=== PATIENT | female | born 1980 | race Caucasian/White ===

== ENCOUNTER 2019-04-16 12:15 | Emergency (ER) | payer SELFPAY ==
[2019-04-16] MEDS ORDERED: ASPIRIN 81 MG TABLET, CHEWABLE PO ONE (12:52)
--- NOTE | 2019-04-16 12:53 | ER Document Report ---
ED Medical Screen (RME) - General Chief Complaint: Chest Pain > 30 Stated Complaint: CHEST/BACK PAIN Time Seen by Provider: 04/16/19 12:50 TRAVEL OUTSIDE OF THE [place] IN LAST 30 DAYS: No - HPI Notes: 04/16/19 12:52 Patient is a 38-year-old female with no significant past medical history aside from tobacco abuse who presents complaining of right sternal chest pain that began 11 hours ago, but has eased off per patient. She is not aware of anything that worsens or improves her symptoms. Denies any recent surgery/trauma, personal cancer history, hormone use, or previous DVT/PE. Denies COOK, fever, nec k pain, URI, n/v/d, Abd pain, dysuria, or rash. I have treated and performed a rapid initial assessment of this patient. A comprehensive ED assessment and evaluation of the patient, analysis of test results and completion of medical decision making process will be conducted by additional ED providers. PHYSICAL EXAMINATION: GENERAL: Well-appearing, well-nourished and in no acute distress. A&Ox4. Answers questions appropriately. LUNGS: Breath sounds clear to auscultation bilaterally and equal. No wheezes rales or rhonchi. HEART: Regular rate and rhythm without murmurs, rubs, gallops. Extremities: No cyanosis, clubbing, or edema b/l. Eleuterio negative bilaterally. No lower extremity asymmetry. NEUROLOGICAL: Normal speech, normal gait. PSYCH: Normal mood, normal affect. - Related Data Allergies/Adverse Reactions: No Known Allergies Allergy (Verified 04/16/19 12:52) Past Medical History - Social History Chew tobacco use (# tins/day): No Frequency of alcohol use: None Drug Abuse: None Physical Exam - Vital signs Vitals: Temp Pulse Resp BP Pulse Ox 97.7 F 81 16 112/77 100 04/16/19 12:30 04/16/19 12:30 04/16/19 12:30 04/16/19 12:30 04/16/19 12:30 Course - Vital Signs Vital signs: Temp Pulse Resp BP Pulse Ox 97.7 F 81 16 112/77 100 04/16/19 12:30 04/16/19 12:30 04/16/19 12:30 04/16/19 12:30 04/16/19 12:30
--- NOTE | 2019-04-16 13:28 | RADIOLOGY REPORT (SQ) ---
EXAM DESCRIPTION: CHEST 2 VIEWS COMPLETED DATE/TIME: 04/16/2019 1:20 pm REASON FOR STUDY: CP COMPARISON: None. EXAM PARAMETERS: NUMBER OF VIEWS: two views TECHNIQUE: Digital Frontal and Lateral radiographic views of the chest acquired. RADIATION DOSE: NA LIMITATIONS: none FINDINGS: LUNGS AND PLEURA: No opacities, masses or pneumothorax. No pleural effusion. MEDIASTINUM AND HILAR STRUCTURES: No masses or contour abnormalities. HEART AND VASCULAR STRUCTURES: Heart normal size. No evidence for failure. BONES: No acute findings. HARDWARE: None in the chest. OTHER: No other significant finding. IMPRESSION: NO ACUTE RADIOGRAPHIC FINDING IN THE CHEST. TECHNICAL DOCUMENTATION: JOB ID: [id number] [employer]- All Rights Reserved Reading location - IP/workstation name: [email or web address]
[2019-04-16 14:15] LABS: ABSOLUTE BASOPHILS # (AUTO) 0.1 10^3/uL (0.0-0.2); ABSOLUTE EOSINOPHILS # (AUTO) 0.1 10^3/uL (0.0-0.6); ABSOLUTE LYMPHOCYTES (AUTO) 1.7 10^3/uL (0.5-4.7); ABSOLUTE MONOCYTES (AUTO) 0.7 10^3/uL (0.1-1.4); ABSOLUTE NEUT (AUTO) 6.6 10^3/uL (1.7-8.2); BASOPHILS % (AUTO) 0.6 % (0-2); EOSINOPHILS % (AUTO) 1.5 % (0-6); HEMOGLOBIN 12.5 g/dL (12.0-15.5); LYMPHOCYTES % (AUTO) 18.3 % (13-45); MEAN CORPUSCULAR HEMOGLOBIN 34.5 pg (27.0-33.4); MEAN CORPUSCULAR HGB CONC 34.6 g/dL (32.0-36.0); MEAN CORPUSCULAR VOLUME 100 fl (80-97); MONOCYTES % (AUTO) 7.5 % (3-13); PLATELET COUNT 269 10^3/uL (150-450); RED BLOOD COUNT 3.62 10^6/uL (3.72-5.28); RED CELL DISTRIBUTION WIDTH 15.7 % (11.5-14.0); SEGMENTED NEUTROPHILS % (AUTO) 72.1 % (42-78); TOTAL CELLS COUNTED % (AUTO) 100 %; WHITE BLOOD COUNT 9.2 10^3/uL (4.0-10.5)
[2019-04-16 14:37] LABS: ALBUMIN 3.9 g/dL (3.5-5.0); ALKALINE PHOSPHATASE 79 U/L (38-126); ANION GAP 10 (5-19); ASPARTATE AMINO TRANSFERASE 91 U/L (14-36); BILIRUBIN,DIRECT 0.2 mg/dL (0.0-0.4); BILIRUBIN,TOTAL 0.3 mg/dL (0.2-1.3); BLOOD UREA NITROGEN 8 mg/dL (7-20); CALCIUM 9.8 mg/dL (8.4-10.2); CARBON DIOXIDE 26 mmol/L (22-30); CHLORIDE 101 mmol/L (98-107); GLUCOSE 89 mg/dL (75-110); POTASSIUM 4.4 mmol/L (3.6-5.0); TOTAL PROTEIN 6.6 g/dL (6.3-8.2)
--- NOTE | 2019-04-16 14:42 | ER Document Report ---
ED General - General Chief Complaint: Chest Pain > 30 Stated Complaint: CHEST/BACK PAIN Time Seen by Provider: 04/16/19 12:50 Notes: 38-year-old female presents emergency department complaining of a sudden onset of a sharp stabbing pain in her chest that radiates to her back and her bilateral shoulders and down to her low back that started 230 this morning. It went on until about 615 this morning when it slowly started to decrease until 10 15 this morning. Patient states that it was a crippling pain that prevents her from standing up straight. Now that it is improving it does not worsen with any movement. Patient had prior similar episode 6 months ago that resolved within 45 minutes so she did not have it investigated. Denies any trauma or shortness of breath associated with this. Does admit a recent [address] TRAVEL OUTSIDE OF THE [place] IN LAST 30 DAYS: No - Related Data Allergies/Adverse Reactions: No Known Allergies Allergy (Verified 04/16/19 12:52) Past Medical History - General Information source: Patient - Social History Smoking Status: Current Every Day Smoker Chew tobacco use (# tins/day): No Frequency of alcohol use: Occasional Drug Abuse: None Family History: CAD - mom with [place] in early 40s Patient has suicidal ideation: No Patient has homicidal ideation: No Review of Systems - Review of Systems Constitutional: No symptoms reported Cardiovascular: See HPI Respiratory: No symptoms reported Gastrointestinal: No symptoms reported Musculoskeletal: See HPI, Back pain -: Yes All other systems reviewed and negative Physical Exam - Vital signs Vitals: Temp Pulse Resp BP Pulse Ox 97.7 F 81 16 112/77 100 04/16/19 12:30 04/16/19 12:30 04/16/19 12:30 04/16/19 12:30 04/16/19 12:30 Interpretation: Normal - Notes Notes: GENERAL: Alert, interacts well. No acute distress. HEAD: Normocephalic, atraumatic EYES: Pupils equal, round and reactive to light, extraocular movements intact. ENT: Oral mucosa moist, tongue midline. NECK: Full range of motion, supple, trachea midline. LUNGS: Clear to auscultation bilaterally, no wheezes, rales or rhonchi, no respiratory distress. HEART: Regular rate and rhythm, no murmurs, gallops, rubs. ABDOMEN: Soft, minimal epigastric tenderness to palpation nondistended, bowel sounds present in all 4 quadrants. BACK: No step-offs no deformities, no midline bony tenderness to palpation. Mild paraspinal tenderness to palpation in the lumbar spine. EXTREMITIES: Moves all 4 extremities spontaneously, no edema, radial and dorsalis pedis pulses 2/4 bilaterally. No cyanosis. 5 out of 5 muscle strength in all 4 extremities. NEUROLOGICAL: Alert and oriented x3, normal speech, biceps and patellar DTRs 2+ bilaterally. PSYCH: Normal mood, normal affect. SKIN: Warm, Dry, normal turgor, no rashes or lesions noted. Course - Re-evaluation Re-evalutation: 04/16/19 16:29 CBC unremarkable, CMP grossly unremarkable, there is slightly elevated AST at 91, patient admits to drinking several beers last night. This should be rechecked as an outpatient. Cardiac enzymes negative, lipase normal, test negative, chest x-ray shows no acute process, CT angiogram of the chest was performed given the fact that she did have a sharp stabbing pain in her chest radiating to her back and down. This was also negative. Some of her pain is reproducible on palpation of the muscles in her back. At present patient will be prescribed muscle relaxers for this pain and discharged home. Recommend further outpatient follow-up should pain persist. Patient did ask to be checked for "all of the diseases including HIV." Discussed with patient that the health department can do outpatient testing for gonorrhea, chlamydia, HIV and syphilis if she desires this. No current symptoms indicating need for emergent work-up today. - Vital Signs Vital signs: Temp Pulse Resp BP Pulse Ox 97.7 F 81 16 112/77 100 04/16/19 12:30 04/16/19 12:30 04/16/19 12:30 04/16/19 12:30 04/16/19 12:30 - Laboratory Result Diagrams: 04/16/19 14:00 04/16/19 14:00 Laboratory results interpreted by me: 04/16/19 04/16/19 14:00 14:00 RBC 3.62 L MCV 100 H MCH 34.5 H RDW 15.7 H Sodium 136.5 L AST 91 H - EKG Interpretation by Me Additional EKG results interpreted by me: 04/16/19 16:30 EKG shows sinus rhythm at a rate of 88, short NV interval, normal axis, no ST segment elevations or depressions, no T wave inversions per my interpretation. Discharge - Discharge Clinical Impression: Chest pain of uncertain etiology, Lumbar paraspinal muscle spasm Condition: Stable Disposition: HOME, SELF-CARE Additional Instructions: I prescribed a muscle relaxer to try and help with some of your pain. Please take it as directed and do not mix it with other muscle relaxant or sedating medications. Please use ibuprofen (Motrin or Advil) 600-800 mg every 8 hours as needed for pain or fever. You may also use acetaminophen (Tylenol) 1000 mg every 4-6 hours as needed for pain or fever. Please be aware that many medications contain acetaminophen, do not exceed a total of 1000 mg of acetaminophen every 6 hours. The [facility] department provides free screening for sexually transmitted diseases. If you would like to be checked for sexually transmitted diseases you may go there during the week. You may check their website for further information or use the phone book to find their number and call them for further information. Please return to the emergency department should you lose the ability to move your arm, your arm goes completely numb, you have difficulty breathing or any new or concerning symptoms. Prescriptions: Methocarbamol [Robaxin 750 mg Tablet] 1 - 2 tab PO Q8HP PRN #40 tablet PRN Reason: For Back Pain Referrals: [facility]ALTH DEPT,[facility] [NO LOCAL MD] - Follow up as needed
--- NOTE | 2019-04-16 15:49 | RADIOLOGY REPORT (SQ) ---
EXAM DESCRIPTION: CTA CHEST COMPLETED DATE/TIME: 04/16/2019 3:22 pm REASON FOR STUDY: sharp stabbing pain through to the back COMPARISON: Two-view chest 04/16/2019 TECHNIQUE: CT scan of the chest performed using helical scanning technique with dynamic intravenous contrast injection. Images reviewed with lung, soft tissue and bone windows. Reconstructed coronal and sagittal MPR images reviewed. Additional 3 dimensional post-processing performed to develop Maximal Intensity Projection images (PA P). All images stored on PACS. All CT scanners at this facility use dose modulation, iterative reconstruction, and/or weight based d osing when appropriate to reduce radiation dose to as low as reasonably achievable (ALARA). [facility]: Dose Right [facility]: CareDose [facility]: Dose Right [facility]: Teradose 4D [facility]: Dashbook CONTRAST TYPE AND DOSE: contrast/concentration: Isovue 350.00 mg/ml; Total Contrast Delivered: 64.0 ml; Total Saline Delivered: 90.0 ml Contrast bolus optimized for the pulmonary arteries and thoracic aorta. RENAL FUNCTION: Creatinine 0.54 RADIATION DOSE: CT Rad equipment meets quality standard of care and radiation dose reduction techniq ues were employed. CTDIvol: 3.3 - 14.3 mGy. DLP: 1106 mGy-cm. . LIMITATIONS: None. FINDINGS: LUNGS AND PLEURA: No masses, infiltrates, or pneumothorax. No pleural effusions or pleura l calcifications. AORTA AND GREAT VESSELS: No aneurysm or thoracic aortic dissection. HEART: No pericardial effusion. No significant coronary artery calcifications. PULMONARY ARTERIES: No emboli visualized in the main pulmonary arteries or the segmental branches. HILAR AND MEDIASTINAL STRUCTURES: No identified masses or abnormal nodes. Small hiatal hernia. HARDWARE: None in the chest. UPPER ABDOMEN: No significant findings. Limited exam. THYROID AND OTHER SOFT TISSUES: No masses. No adenopathy. BONES: No acute or significant finding. 3D MIPS: Confirm above findings. OTHER: No other significant finding. IMPRESSION: NORMAL CTA OF THE CHEST. NO PULMONARY EMBOLI. COMMENT: Quality ID # [id number]: Final reports with documentation of one or more dose reduction techniques (e.g., Automated exposure control, adjustment of the mA and/or kV according to patient size, use of iterative reconstruction technique) TECHNICAL DOCUMENTATION: JOB ID: [id number] [employer]- All Rights Reserved Reading location - IP/workstation name: [email or web address]
[2019-04-16] MEDS ORDERED: METHOCARBAMOL 750 MG TABLET PO ONE (16:33)
[2019-04-16 17:07] VITALS: BP 114/73
--- NOTE | 2019-04-17 00:27 | EKG REPORT ---
SEVERITY:- BORDERLINE ECG - SINUS RHYTHM SHORT [place] INTERVAL, ACCELERATED AV CONDUCTION : Confirmed by: Deborah Schmidt MD 17-Apr-2019 00:26:38
== END 2019-04-16 17:09 | disposition home or self-care (01) ==
LOC: ER 12:15
DX: R07.9 Chest pain, unspecified (principal); M62.830 Muscle spasm of back; M54.5 Low back pain; F17.200 Nicotine dependence, unspecified, uncomplicated
CPT/HCPCS: 93005; 36415; 83690; 84703; 85025; 80053; 84484; 71046; 71275; 93010; J3490

== ENCOUNTER 2019-04-23 16:05 | Emergency (ER) | payer SELFPAY ==
[2019-04-23 16:41] VITALS: BP 101/70
[2019-04-23] MEDS ORDERED: PREDNISONE 20 MG TABLET PO ONE (17:28)
[2019-04-23] MEDS ORDERED: PREDNISONE 20 MG TABLET ONE (17:34)
--- NOTE | 2019-04-23 17:34 | ER Document Report ---
HPI - HPI Time Seen by Provider: 04/23/19 16:55 Pain Level: 3 Notes: Patient is an otherwise well-appearing 39-year-old female presenting to the emergency department with complaints of back pain. She reports she was seen here last week and was prescribed Flexeril. She reports the Flexeril it has been helping significantly. She reports at that time they did a full work-up on her and found her blood work to be normal. She states that she called EMS today as the pain returned around 1130 this morning. She states EMS gave her a shot of Toradol which significantly helped the pain. She denies taking any [id number] medications at home to include Tylenol or ibuprofen for this pain. She denies any chest pain or shortness of breath. - CONSTITUTIONAL Constitutional: REPORTS: Chills. DENIES: Fever - EENT EENT: DENIES: Sore Throat, Ear Pain, Eye problems - NEURO Neurology: DENIES: Headache, Weakness, Vision blurred, Dizzinesss / Vertigo - CARDIOVASCULAR Cardiovascular: REPORTS: Chest pain - RESPIRATORY Respiratory: DENIES: Trouble Breathing, Coughing - GASTROINTESTINAL Gastrointestinal: REPORTS: Abdominal Pain - URINARY Urinary: DENIES: Dysuria, Urgency, Frequency - REPRODUCTIVE Reproductive: DENIES: : - MUSCULOSKELETAL Musculoskeletal: DENIES: Extremity pain Past Medical History - General Information source: Patient - Social History Smoking Status: Current Every Day Smoker Chew tobacco use (# tins/day): No Frequency of alcohol use: Heavy Drug Abuse: None Family History: CAD - mom with [place] in early 40s Patient has suicidal ideation: No Patient has homicidal ideation: No - Medical History Medical History: Negative Surgical Hx: Negative - Immunizations Immunizations up to date: Yes Vertical Provider Document - CONSTITUTIONAL Notes: PHYSICAL EXAMINATION: GENERAL: Well-appearing, well-nourished and in no acute distress. HEAD: Atraumatic, normocephalic. EYES: Pupils equal round and reactive to light, extraocular movements intact, conjunctiva are normal. ENT: Nares patent, oropharynx clear without exudates. Moist mucous membranes. NECK: Normal range of motion, supple without lymphadenopathy LUNGS: Breath sounds clear to auscultation bilaterally and equal. No wheezes rales or rhonchi. HEART: Regular rate and rhythm without murmurs ABDOMEN: Soft, nontender, nondistended abdomen. No guarding, no rebound. No masses appreciated. Female : deferred Musculoskeletal: Normal range of motion, no pitting or edema. No cyanosis. Tenderness with palpation over thoracic paraspinous muscles bilaterally, no vertebral tenderness, step-off or deformity. NEUROLOGICAL: Cranial nerves grossly intact. Normal speech, normal gait. Normal sensory, motor exams PSYCH: Normal mood, normal affect. SKIN: Warm, Dry, normal turgor, no rashes or lesions noted. - INFECTION CONTROL TRAVEL OUTSIDE OF THE [place] IN LAST 30 DAYS: No Course - Re-evaluation Re-evalutation: Well-appearing but anxious 39-year-old female presenting to the emergency dep artment with back pain. Patient reports Toradol significantly helped her pain and she is requesting a prescription for same. Patient reports multiple stressors going on her life that she is dealing with custody issues any break- up. She believes some of this may be triggered by anxiety. Patient mostly concerned that she needs a work note to excuse her as she has missed the last few days of work. I discussed with patient prescribing Toradol however due to cost restrictions patient would rather just take ibuprofen as I explained her that ibuprofen and Toradol are in a similar drug class. Patient will be discharged home she will continue taking her Flexeril, she states she has plenty of this left. She will take ibuprofen at home. She will have close follow-up with her primary care provider. ED return precautions were discussed, patient verbalizes understanding and agreement with same. - Vital Signs Vital signs: Temp Pulse Resp BP Pulse Ox 97.8 F 77 18 101/70 98 04/23/19 16:38 04/23/19 16:38 04/23/19 16:38 04/23/19 16:38 04/23/19 16:38 Discharge - Discharge Clinical Impression: Musculoskeletal strain Condition: Stable Disposition: HOME, SELF-CARE Additional Instructions: Please continue taking the Flexeril as prescribed. Start taking the prednisone, your first dose was given in the ER. Please take ibuprofen 800 mg every 8 hours this will help with pain and inf lammation. [facility] Return to the emergency department with any new or worsening symptoms. Prescriptions: Prednisone [Deltasone 20 mg Tablet] 3 tab PO DAILY 4 Days #12 tablet Forms: Return to Work
--- NOTE | 2019-04-26 07:32 | EKG REPORT ---
SEVERITY:- BORDERLINE ECG - SINUS TACHYCARDIA CONSIDER ANTERIOR INFARCT BORDERLINE T ABNORMALITIES, ANTERIOR LEADS : Confirmed by: Jack Garcia MD 26-Apr-2019 07:32:06
== END 2019-04-23 17:56 | disposition home or self-care (01) ==
LOC: ER 16:05
DX: S29.012A Strain of muscle and tendon of back wall of thorax, initial encounter (principal); S21.90XA Unspecified open wound of unspecified part of thorax, initial encounter; M54.9 Dorsalgia, unspecified; R07.9 Chest pain, unspecified; X58.XXXA Exposure to other specified factors, initial encounter; Z79.899 Other long term (current) drug therapy; F17.200 Nicotine dependence, unspecified, uncomplicated
CPT/HCPCS: 93005; 99283; 93010; J7512

== ENCOUNTER 2019-04-27 13:04 | Emergency (ER) | payer SELFPAY ==
[2019-04-27] MEDS ORDERED: NORMAL SALINE 1000 ML 1,000 ML IV PRN (13:39)
[2019-04-27] MEDS ORDERED: ONDANSETRON HCL INJ/PF 4 MG/2 ML SDV IV ONE (13:39)
--- NOTE | 2019-04-27 13:40 | ER Document Report ---
ED Medical Screen (RME) - General Chief Complaint: Abdominal Pain Stated Complaint: VOMITING Time Seen by Provider: 04/27/19 13:39 TRAVEL OUTSIDE OF THE [place] IN LAST 30 DAYS: No - HPI Notes: 04/27/19 13:39 Patient is a 39-year-old female with no significant past medical history presents complaining of nausea and vomiting with intermittent abdominal cramping that started last night. No new foods, medicines, or alcohol involvement. She currently does not have any pain. No fever. No recent illness. I have treated and performed a rapid initial assessment of this patient. A comprehensive ED assessment and evaluation of the patient, analysis of test results and completion of medical decision making process will be conducted by additional ED providers. PHYSICAL EXAMINATION: GENERAL: Well-appearing, well-nourished and in no acute distress. A&Ox4. Answers questions appropriately. ABDOMEN: Soft, nondistended abdomen. No guarding, no rebound. Normal bowel sounds present. No CVA tenderness bilaterally. grossly nontender (cannot elicit thorough abd exam w/o bed, however). - Related Data Allergies/Adverse Reactions: No Known Allergies Allergy (Verified 04/27/19 13:37) Past Medical History - Immunizations Immunizations up to date: Yes Physical Exam - Vital signs Vitals: Temp Pulse Resp BP Pulse Ox 97.6 F 72 18 111/72 100 04/27/19 13:13 04/27/19 13:13 04/27/19 13:13 04/27/19 13:13 04/27/19 13:13 Course - Vital Signs Vital signs: Temp Pulse Resp BP Pulse Ox 97.6 F 72 18 111/72 100 04/27/19 13:13 04/27/19 13:13 04/27/19 13:13 04/27/19 13:13 04/27/19 13:13
[2019-04-27] MEDS ORDERED: ONDANSETRON 4 MG TAB.RAPDIS PO ONE (13:44)
[2019-04-27] MEDS ORDERED: PROMETHAZINE HCL INJ 25 MG/1 ML VIAL IM ONE (13:46)
[2019-04-27 15:11] LABS: AMORPHOUS SEDIMENT,URINE 1+ /HPF; APPEARANCE,URINE TURBID; BILIRUBIN,URINE NEGATIVE (NEGATIVE); COLOR,URINE YELLOW; GLUCOSE, URINE NEGATIVE (NEGATIVE); KETONES,URINE 20 mg/dL (NEGATIVE); PROTEIN,URINE 100 mg/dL (NEGATIVE); URINE SPECIFIC GRAVITY 1.019; UROBILINOGEN,URINE NEGATIVE mg/dL (<2.0)
--- NOTE | 2019-04-27 15:44 | ER Document Report ---
ED General - General Chief Complaint: Vomiting Stated Complaint: VOMITING Time Seen by Provider: 04/27/19 13:39 TRAVEL OUTSIDE OF THE [place] IN LAST 30 DAYS: No - HPI Notes: Patient is a 39-year-old female with no significant medical history who presents to the emergency department for evaluation of vomiting. She states that began last night. She relates 18-20 episodes of nonbloody, nonbilious emesis. She states she has had hot and cold chills. No rafaela fevers to her knowledge. She denies any pain. Normal bowel movement yesterday. No urinary symptoms. No cough or shortness of breath. - Related Data Allergies/Adverse Reactions: No Known Allergies Allergy (Verified 04/27/19 13:37) Home Medications: None Past Medical History - General Information source: Patient - Social History Smoking Status: Current Every Day Smoker Chew tobacco use (# tins/day): No Frequency of alcohol use: Occasional Drug Abuse: None Family History: CAD - mom with [place] in early 40s Patient has suicidal ideation: No Patient has homicidal ideation: No Past Surgical History: Reports: Hx Section - x2 - Immunizations Immunizations up to date: Yes Review of Systems - Review of Systems Constitutional: See HPI EENT: No symptoms reported Cardiovascular: No symptoms reported Respiratory: No symptoms reported Gastrointestinal: See HPI Genitourinary: No symptoms reported Musculoskeletal: No symptoms reported Skin: No symptoms reported Neurological/Psychological: No symptoms reported Physical Exam - Vital signs Vitals: Temp Pulse Resp BP Pulse Ox 97.6 F 72 18 111/72 100 04/27/19 13:13 04/27/19 13:13 04/27/19 13:13 04/27/19 13:13 04/27/19 13:13 - Notes Notes: Vital signs reviewed, please refer to chart. Head is normocephalic, atraumatic. Pupils equal round, reactive to light. Neck is supple without meningismus. Heart is regular rate and rhythm. Lungs are clear to auscultation bilaterally. Abdomen is soft, nontender, normoactive bowel sounds throughout. Extremities without cyanosis, clubbing. Posterior calves are nontender. Peripheral pulses are equal. Skin is warm and dry. Patient is awake, alert, neurological exam is nonfocal. Course - Re-evaluation Re-evalutation: 04/27/19 15:44 Patient is a 39-year-old female presents emergency department for evaluation of nausea and vomiting. She really does not have any other associated symptoms. Her vital signs are unremarkable for any signs of significant dehydration, and her urinalysis reveals a normal specific gravity. Patient is feeling improved. We will send her home with nausea medication and close follow-up. She is to return to the ED with worsening. - Vital Signs Vital signs: Temp Pulse Resp BP Pulse Ox 97.6 F 72 18 111/72 100 04/27/19 13:13 04/27/19 13:13 04/27/19 13:13 04/27/19 13:13 04/27/19 13:13 - Laboratory Laboratory results interpreted by me: 04/27/19 14:30 Urine Protein 100 H Urine Ketones 20 H Discharge - Discharge Clinical Impression: Nausea & vomiting Condition: Stable Disposition: HOME, SELF-CARE Instructions: Antinausea Medication ([facility]), Vomiting ([facility]) Additional Instructions: Rest. Stay well-hydrated with small, frequent sips of clear liquids. Advance diet slowly as tolerated. Take Zofran as needed for nausea. Follow-up with primary care next week. If you develop increased pain, worsening vomiting, or any other new or concerning symptoms, return immediately to the emergency department for reevaluation.
[2019-04-27] MEDS ORDERED: ONDANSETRON ODT 4 MG TAB (6 TAB/ER DISP) PO PRN (16:38)
[2019-04-27 17:00] VITALS: BP 112/83
== END 2019-04-27 16:59 | disposition home or self-care (01) ==
LOC: ER 13:04
DX: R11.2 Nausea with vomiting, unspecified (principal); F17.200 Nicotine dependence, unspecified, uncomplicated
CPT/HCPCS: 81025; 81001; J2550; 96372; 99284

== ENCOUNTER 2019-04-27 18:38 | Emergency (ER) | payer SELFPAY ==
--- NOTE | 2019-04-27 20:25 | ER Document Report ---
ED General - General Chief Complaint: Vomiting Stated Complaint: VOMITING Time Seen by Provider: 04/27/19 20:24 TRAVEL OUTSIDE OF THE [place] IN LAST 30 DAYS: No - HPI Notes: Patient is a 39-year-old female presenting with nausea and vomiting. Patient states that she is been having nausea and vomiting for the past 2 days. Patient states that she was seen in the ED here earlier today and prescribed Zofran and Phenergan without relief of symptoms. Patient states that she is frustrated because she cannot stop vomiting, and just wants to be able to drink some fluid and eat some food. Patient denies prior history of SBO. Patient denies extensive or chronic history of nausea and vomiting in the past secondary to other comorbidities such as diabetes. Patient states she has had 2 C-sections in the past. Patient denies fever, chills, diaphoresis, abdominal pain, other constitutional symptoms. Differential diagnosis: Viral gastroenteritis, electrolyte abnormality, , dehydration, pancreatitis. Plan: Order alternative antiemetics, E. G., Compazine, IV fluid bolus with normal saline, check CBC CMP lipase and urine , reevaluate patient's response to Compazine, fluid and interpret patient's lab work. Patient states that she is under a tremendous amount of stress in her personal life. Patient states that she is going through a divorce and has joint custody of her children which is extremely stressful for her. - Related Data Allergies/Adverse Reactions: No Known Allergies Allergy (Verified 04/27/19 13:37) Past Medical History - General Information source: Patient - Social History Smoking Status: Current Every Day Smoker Family History: CAD - mom with [employer] in early 40s - Medical History Medical History: Negative Past Surgical History: Reports: Hx Section - x2 - Immunizations Immunizations up to date: Yes Review of Systems - Review of Systems Constitutional: Weakness EENT: No symptoms reported Cardiovascular: No symptoms reported Respiratory: No symptoms reported Gastrointestinal: Nausea, Vomiting Genitourinary: No symptoms reported Female Genitourinary: No symptoms reported Musculoskeletal: No symptoms reported Skin: No symptoms reported Hematologic/Lymphatic: No symptoms reported Neurological/Psychological: See HPI Physical Exam - Vital signs Vitals: Resp BP Pulse Ox 12 119/88 H 100 04/27/19 20:27 04/27/19 20:27 04/27/19 20:27 - General General appearance: Anxious In distress: None - HEENT Head: Normocephalic, Atraumatic. No: Abrasions, Salomon's sign, Rac[place]'s eyes Eyes: Normal Conjunctiva: Normal Cornea: Normal Pharynx: Normal - Respiratory Respiratory status: No respiratory distress Chest status: Nontender Breath sounds: Normal Chest palpation: Normal - Cardiovascular Rhythm: Regular Heart sounds: Normal auscultation Murmur: No - Abdominal Inspection: Normal Distension: No distension Bowel sounds: Normal Tenderness: Nontender Organomegaly: No organomegaly - Back Back: Normal, Nontender - Extremities General upper extremity: Normal inspection, Nontender, Normal color, Normal ROM, Normal temperature General lower extremity: Normal inspection, Nontender, Normal color, Normal ROM, Normal temperature, Normal weight bearing. No: Eleuterio's sign - Neurological Neuro grossly intact: Yes Cognition: Normal Orientation: AAOx4 Samira Coma Scale Eye Opening: Spontaneous [place] Coma Scale Verbal: Oriented [place] Coma Scale Motor: Obeys Commands Samira Coma Scale Total: 15 Speech: Normal Motor strength normal: LUE, RUE, LLE, RLE Sensory: Normal - Psychological Associated symptoms: Anxious, Decreased appetite, Tearful. No: Auditory hallucinations, Circumferential speech, Combative, Confused, Flat affect, Flight of ideas, Manic, Paranoid, Psychomotor agitation - Skin Skin Temperature: Warm Skin Moisture: Dry Skin Color: Normal Course - Re-evaluation Re-evalutation: 04/28/19 01:59 Patient states that her nausea is improved. Discussed with patient how emotional stressors can be translated into physical symptoms. This discussion took place with the patient's nurse at the bedside. Patient denies domestic abuse, suicidal ideation, homicidal ideation, thoughts of harm to self. Patient states that she "is under a tremendous amount of stress right now and just needs some relief of her symptoms so she can spend time with her kids." This MD offered to give the patient a prescription for 0.25 mg of Xanax, dispensing a limit of 6 tablets. This MD discussed with patient why this was being offered, house to be used. Patient expressed understanding and accepted offer for Xanax prescription. Patient was instructed to take Xanax only as prescribed, not to drive or operate machinery when using the medication, and not to use more than what is written on the prescription label. This MD explained to the patient that this is only a temporary treatment for her anxiety symptoms. This MD offered resources to the patient for talk therapy and other mental health resources. Patient accepted offer of these resources. Assessment: 39-year-old female presenting with persistent nausea and vomiting and complaints of exceptional stress in her personal life. Plan: We will prescribe Xanax as discussed above. [facility]. Patient instructed to call 911 if symptoms worsen despite taking medication as prescribed. Diagnosis: #1 acute anxiety as a reaction to exceptional stress #2 acute nausea and vomiting - Vital Signs Vital signs: Temp Pulse Resp BP Pulse Ox 16 115/73 96 04/27/19 23:01 04/27/19 23:01 04/27/19 23:01 - Laboratory Result Diagrams: 04/27/19 20:35 04/27/19 20:35 Laboratory results interpreted by me: 04/27/19 04/27/19 20:35 20:35 MCV 98 H RDW 15.8 H Sodium 136.7 L AST 95 H All lab results reviewed by this MD Discharge - Discharge Clinical Impression: Anxiety as acute reaction to exceptional stress, Nausea and vomiting Condition: Good Disposition: HOME, SELF-CARE Instructions: Anxiety ([facility]), Nausea or Vomiting, Nonspecific ([facility]) Additional Instructions: Return to the Emergency Department without delay if any worse. Be certain to use the [facility] ED mental health team community outpatient referral list given to you Do not drive or operate machinery when using Xanax Prescriptions: Alprazolam [Xanax 0.25 mg Tablet] 0.25 mg PO QHS #6 tab
[2019-04-27] MEDS ORDERED: PROCHLORPERAZINE EDISYLATE INJ 10 MG/2 ML VIAL IV ONE (20:42)
[2019-04-27] MEDS ORDERED: NORMAL SALINE 1000 ML 1,000 ML IV ONE (20:43)
[2019-04-27 20:52] LABS: ABSOLUTE BASOPHILS # (AUTO) 0.1 10^3/uL (0.0-0.2); ABSOLUTE LYMPHOCYTES (AUTO) 1.9 10^3/uL (0.5-4.7); ABSOLUTE MONOCYTES (AUTO) 0.8 10^3/uL (0.1-1.4); BASOPHILS % (AUTO) 0.5 % (0-2); EOSINOPHILS % (AUTO) 0.1 % (0-6); HEMATOCRIT 39.2 % (36.0-47.0); HEMOGLOBIN 13.1 g/dL (12.0-15.5); LYMPHOCYTES % (AUTO) 19.5 % (13-45); MEAN CORPUSCULAR HEMOGLOBIN 32.9 pg (27.0-33.4); MEAN CORPUSCULAR HGB CONC 33.4 g/dL (32.0-36.0); MEAN CORPUSCULAR VOLUME 98 fl (80-97); MONOCYTES % (AUTO) 8.4 % (3-13); PLATELET COUNT 366 10^3/uL (150-450); RED BLOOD COUNT 3.98 10^6/uL (3.72-5.28); RED CELL DISTRIBUTION WIDTH 15.8 % (11.5-14.0); SEGMENTED NEUTROPHILS % (AUTO) 71.5 % (42-78); TOTAL CELLS COUNTED % (AUTO) 100 %; WHITE BLOOD COUNT 9.9 10^3/uL (4.0-10.5)
[2019-04-27 21:10] LABS: ALKALINE PHOSPHATASE 107 U/L (38-126); ANION GAP 10 (5-19); ASPARTATE AMINO TRANSFERASE 95 U/L (14-36); BILIRUBIN,DIRECT 0.3 mg/dL (0.0-0.4); BILIRUBIN,TOTAL 0.7 mg/dL (0.2-1.3); BLOOD UREA NITROGEN 11 mg/dL (7-20); CALCIUM 9.8 mg/dL (8.4-10.2); CARBON DIOXIDE 29 mmol/L (22-30); CHLORIDE 98 mmol/L (98-107); GLUCOSE 96 mg/dL (75-110); POTASSIUM 4.1 mmol/L (3.6-5.0); TOTAL PROTEIN 6.9 g/dL (6.3-8.2)
[2019-04-28] MEDS ORDERED: ONDANSETRON HCL INJ/PF 4 MG/2 ML SDV IV ONE (00:22)
[2019-04-28] MEDS ORDERED: ALPRAZOLAM 0.25 MG TABLET PO ONE (00:48)
[2019-04-28 02:15] VITALS: BP 112/81
== END 2019-04-28 02:42 | disposition home or self-care (01) ==
LOC: ER 18:38
DX: F41.1 Generalized anxiety disorder (principal); F43.0 Acute stress reaction; R11.2 Nausea with vomiting, unspecified; F17.200 Nicotine dependence, unspecified, uncomplicated
CPT/HCPCS: 36415; 83690; 85025; 80053; J0780; J7030; 96361; 96374; 99283